=== PATIENT | male | born 1950 | race African-American/Black ===

== ENCOUNTER 2018-08-15 10:23 | Emergency (ER) | payer OTHER ==
[~2018-08-15] VITALS: Ht 170.2 cm; Wt 59.0 kg
[~2018-08-15 10:23] MED LIST: IBUPROFEN 200200 M1 PO
[2018-08-15] MEDS ORDERED: IBUPROFEN 600600 M1 PO (10:30)
[2018-08-15] MEDS ORDERED: NORFLEX100 MG PO (12:05)
[2018-08-15 12:17] VITALS: BP 127/85
== END 2018-08-15 12:15 | disposition home or self-care (01) ==
LOC: ER 10:23
DX: S39.012A Strain of muscle, fascia and tendon of lower back, initial encounter (principal); S80.02XA Contusion of left knee, initial encounter; Z90.49 Acquired absence of other specified parts of digestive tract; V89.2XXA Person injured in unspecified motor-vehicle accident, traffic, initial encounter; Y93.89 Activity, other specified; Y92.89 Other specified places as the place of occurrence of the external cause; Y99.8 Other external cause status

== ENCOUNTER → 2018-10-15 | Outpatient (CLI) | payer OTHER ==
[~2018-10-15] VITALS: Ht 172.7 cm; Wt 72.6 kg
[~2018-10-15] MED LIST changes: +CBD OIL; +IBUPROFEN 600600 M1 PO; +NORCO 5-325 TA1 EAC1 PO; +NORFLEX100 MG PO; +OMEPRAZOLE20 M2 PO
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
[2018-10-15 09:51] VITALS: BP 141/82
--- NOTE | 2018-10-15 10:08 | NUR ---
Pain Clinic Assessment: 1. History of Osteoarthritis: TAILBONE WRIST History of Rheumatoid Arthritis: 2. Height: 5 ft. 8 in. 172.7 cm. Weight: 160.0 lb. oz. 72.576 kg. Patient's BMI: 24.3 3. Vital Signs: BP: 141/82 Pulse: 72 Resp: 16 Temp: 02 Sat: 98 ECG Mon: 4. Pain Intensity: 3-7 5. Fall Risk: Dizziness: N Needs help standing or walking: N Fallen in the last 3 months: N Fall risk comments: 6. Patient on Blood Thinner: None 7. History of Hypertension: N 8. Opioid Therapy greater than 6 weeks: Y Opiate Contract Signed: 9. Risk Assessment Tool Provided: DR WILDER 10. Functional Assessment Tool: 11. Recreational Drug Use: Current within past 3 mos Drug Type: MJ Tobacco Use: Never Smoker Tobacco Type: Amount or Packs/day: How Many Years: Alcohol Use: No Frequency: Quant:
== END | disposition home or self-care (01) ==
LOC: PAIN 06:52
DX: M51.16 Intervertebral disc disorders with radiculopathy, lumbar region (principal); M47.26 Other spondylosis with radiculopathy, lumbar region; M51.26 Other intervertebral disc displacement, lumbar region; G89.29 Other chronic pain; Z98.890 Other specified postprocedural states; Z90.49 Acquired absence of other specified parts of digestive tract; Z87.442 Personal history of urinary calculi; Z82.49 Family history of ischemic heart disease and other diseases of the circulatory system; Z80.42 Family history of malignant neoplasm of prostate; Z79.899 Other long term (current) drug therapy; Z79.891 Long term (current) use of opiate analgesic